=== PATIENT | male | born 1990 | race Two or more races ===

== ENCOUNTER 2025-02-20 17:06 | Inpatient (IN) | payer OTHER ==
[~2025-02-20] VITALS: Ht 185.4 cm; Wt 113.6 kg
[2025-02-20 20:00] VITALS: BP 103/76; TEMP 98.2; O2SAT 96
[2025-02-20] MEDS ORDERED: ONDANSETRON HCL/PF 4 MG/2 ML VIAL IVP PRN (20:30)
[2025-02-20] MEDS ORDERED: MAGNESIUM HYDROXIDE 30 ML UDC PO PRN (20:30)
[2025-02-20] MEDS ORDERED: MAG HYDROX/AL HYDROX/SIMETH 30 ML UDC PO PRN (20:30)
[2025-02-20] MEDS ORDERED: MORPHINE SULFATE INJ 4 MG/ML DISP.SYRIN IV PRN (21:30)
[2025-02-20] MEDS: IV NS 0.9% 1,000 ML IV SCH (21:36)
[2025-02-21] VITALS: BP 103/73; TEMP 98.1; O2SAT 97
[2025-02-21 04:00] VITALS: BP 111/72; TEMP 98.2; O2SAT 96
[2025-02-21] MEDS: ACETAMINOPHEN 325 MG TABLET PO PRN (04:42)
[2025-02-21 07:06] LABS: PLATELET COUNT (AUTO) 110 K/uL (150-450); RED BLOOD CELL COUNT(AUTO) 5.29 MIL/uL (4.5-6.0); RED CELL DISTRIBUTION WIDTH 13.9 % (11.5-15.0); WHITE BLOOD COUNT (AUTO) 6.8 K/uL (4.3-11.0)
[2025-02-21 07:09] LABS: ASPARTATE AMINOTRANSFERASE 19.0 U/L (15-37); CALCIUM, SERUM 7.8 mg/dL (8.5-10.1); CREATININE 1.1 mg/dL (0.6-1.3); PHOSPHORUS 2.4 mg/dL (2.5-4.9); SODIUM SERUM 137.0 mmol/L (136-145); TOTAL PROTEIN, SERUM 5.8 g/dL (6.4-8.2); UREA NITROGEN, BLOOD 18.0 mg/dL (7-18)
[2025-02-21 07:30] VITALS: BP 115/85; TEMP 97.9; O2SAT 97
[2025-02-21] MEDS ORDERED: MAGNESIUM OXIDE 400 MG TABLET PO ONE (10:00)
[2025-02-21] MEDS ORDERED: POTASSIUM CHLORIDE 20 MEQ TAB.PRT.SR PO SCH (10:00)
[2025-02-21] MEDS ORDERED: IV NS 0.9% 1,000 ML IV PRN (10:07)
[2025-02-21] MEDS ORDERED: CEFTRIAXONE 1 G in IV D5W 50 ML IV SCH (15:00)
[2025-02-21] MEDS ORDERED: METRONIDAZOLE 500MG/ NS 100ML 500 MG in PREMIX 1 EA IV SCH (15:30)
== END 2025-02-21 10:30 | disposition left against medical advice (07) | DRG 720 ==
LOC: TELE 19:32
DX: A41.9 Sepsis, unspecified organism (principal); Z59.00 Homelessness unspecified; F15.10 Other stimulant abuse, uncomplicated; E86.0 Dehydration; K52.9 Noninfective gastroenteritis and colitis, unspecified; F17.200 Nicotine dependence, unspecified, uncomplicated
CPT/HCPCS: 36415; 80053-TC; 83690-TC; 83735-TC; 84100-TC; 84443-TC; 85025-TC; A4216; A4223; G0378; J0696; J7030; J7060